=== PATIENT | female | born 1995 | race Caucasian/White ===

== ENCOUNTER 2017-02-08 22:13 | Emergency (ER) | payer MEDICAID ==
[2015-08-07 01:41] VITALS: BMI 26.0
[2017-02-08 22:51] LABS: BASOPHILS 0.2 % (0-2); EOSINOPHILS 1.9 % (0-7); HEMATOCRIT 37.4 % (36.0-48.0); HEMOGLOBIN 13.1 g/dL (12-16); IMMATURE GRANULOCYTES 0.1 % (0-5); LYMPHOCYTES 27.3 % (15-50); MCH 30.3 pg (26.0-34.0); MCV 86.6 fL (80.0-100.0); MEAN PLATELET VOLUME 9.5 fL (7.4-10.4); MONOCYTES 10.2 % (2-11); NEUTROPHILS 60.3 % (40-80); PLATELET COUNT 281 10x3/uL (130-400); RBC 4.32 10x6/uL (4.00-5.40); RDW 12.2 % (11.5-14.5)
[2017-02-08 23:01] LABS: HCG SERUM POSITIVE (NEGATIVE)
[2017-02-08 23:03] LABS: ALBUMIN 3.8 g/dL (3.4-5.0); ALKALINE PHOSPHATASE 84 U/L (46-116); ALT (SGPT) 28 U/L (10-68); CALC OSMOLALITY 269 mosm/kg (275-300); CALCIUM 9.2 mg/dL (8.5-10.1); CARBON DIOXIDE 22.6 mmol/L (21.0-32.0); CHLORIDE - SERUM 103 mmol/L (98-107); CREATININE - SERUM 0.6 mg/dL (0.6-1.3); GLUCOSE 92 mg/dL (74-106); POTASSIUM - SERUM 3.6 mmol/L (3.5-5.1); PROTEIN - SERUM 7.5 g/dL (6.4-8.2); SODIUM 136 mmol/L (136-145); UREA NITROGEN 8 mg/dL (7-18); eGFR NON AFRICAN AMERICAN > 90 mL/min (90-120)
[2017-02-08 23:20] LABS: APPEARANCE CLEAR (CLEAR); BILIRUBIN NEGATIVE (NEGATIVE); COLOR YELLOW (YELLOW); GLUCOSE NEGATIVE (NEGATIVE); KETONE NEGATIVE (NEGATIVE); NITRITE NEGATIVE (NEGATIVE); PROTEIN NEGATIVE (NEGATIVE); SPECIFIC GRAVITY 1.015 (1.005-1.020); UROBILINOGEN NORMAL (NORMAL)
== END 2017-02-09 00:02 | disposition home or self-care (01) ==
LOC: D.ER 22:13
PROVIDERS: Family Medicine
DX: O26.891 Other specified pregnancy related conditions, first trimester (principal); Z3A.08 8 weeks gestation of pregnancy; M54.5 Low back pain; F41.9 Anxiety disorder, unspecified

== ENCOUNTER 2017-04-26 23:20 | Emergency (ER) | payer MEDICAID ==
[2015-08-07 01:41] VITALS: BMI 26.0
[2017-04-26 23:39] LABS: APPEARANCE CLEAR (CLEAR); COLOR YELLOW (YELLOW); NITRITE NEGATIVE (NEGATIVE); PROTEIN NEGATIVE (NEGATIVE)
[2017-04-26 23:40] LABS: BILIRUBIN NEGATIVE (NEGATIVE); GLUCOSE NEGATIVE (NEGATIVE); KETONE NEGATIVE (NEGATIVE); UROBILINOGEN NORMAL (NORMAL)
[2017-04-27 00:19] LABS: BASOPHILS 0.1 % (0-2); EOSINOPHILS 0.9 % (0-7); HEMATOCRIT 35.7 % (36.0-48.0); HEMOGLOBIN 12.5 g/dL (12-16); IMMATURE GRANULOCYTES 0.5 % (0-5); LYMPHOCYTES 19.7 % (15-50); MCH 30.6 pg (26.0-34.0); MCV 87.5 fL (80.0-100.0); MEAN PLATELET VOLUME 9.8 fL (7.4-10.4); MONOCYTES 8.1 % (2-11); NEUTROPHILS 70.7 % (40-80); PLATELET COUNT 265 10x3/uL (130-400); RBC 4.08 10x6/uL (4.00-5.40); WBC 9.9 10x3/uL (4.8-10.8)
[2017-04-27 00:30] LABS: ALBUMIN 3.3 g/dL (3.4-5.0); ALKALINE PHOSPHATASE 79 U/L (46-116); ALT (SGPT) 20 U/L (10-68); CALC OSMOLALITY 273 mosm/kg (275-300); CARBON DIOXIDE 23.1 mmol/L (21.0-32.0); CHLORIDE - SERUM 104 mmol/L (98-107); CREATININE - SERUM 0.6 mg/dL (0.6-1.3); GLUCOSE 93 mg/dL (74-106); POTASSIUM - SERUM 3.9 mmol/L (3.5-5.1); PROTEIN - SERUM 7.5 g/dL (6.4-8.2); SODIUM 138 mmol/L (136-145); UREA NITROGEN 6 mg/dL (7-18); eGFR NON AFRICAN AMERICAN > 90 mL/min (90-120)
== END 2017-04-27 00:45 | disposition home or self-care (01) ==
LOC: D.ER 23:20
PROVIDERS: Emergency Medicine
DX: O26.892 Other specified pregnancy related conditions, second trimester (principal); Z3A.19 19 weeks gestation of pregnancy; R11.0 Nausea

== ENCOUNTER → 2017-07-23 14:02 | Outpatient (CLI) | payer MEDICAID ==
[2015-08-07 01:41] VITALS: BMI 26.0
[2017-07-23 16:01] LABS: APPEARANCE CLEAR (CLEAR); BILIRUBIN NEGATIVE (NEGATIVE); COLOR YELLOW (YELLOW); GLUCOSE NEGATIVE (NEGATIVE); KETONE NEGATIVE (NEGATIVE); NITRITE NEGATIVE (NEGATIVE); PROTEIN NEGATIVE (NEGATIVE); UROBILINOGEN NORMAL (NORMAL)
[2017-07-23 17:50] LABS: BASOPHILS 0.1 % (0-2); EOSINOPHILS 1.4 % (0-7); HEMATOCRIT 33.3 % (36.0-48.0); HEMOGLOBIN 11.3 g/dL (12-16); IMMATURE GRANULOCYTES 0.6 % (0-5); MCH 29.7 pg (26.0-34.0); MCHC 33.9 g/dL (31.0-37.0); MCV 87.6 fL (80.0-100.0); MONOCYTES 9.5 % (2-11); NEUTROPHILS 66.4 % (40-80); PLATELET COUNT 236 10x3/uL (130-400); RDW 12.3 % (11.5-14.5); WBC 8.8 10x3/uL (4.8-10.8)
[2017-07-23 18:07] LABS: ALBUMIN 2.5 g/dL (3.4-5.0); ALKALINE PHOSPHATASE 141 U/L (46-116); ALT (SGPT) 20 U/L (10-68); BILIRUBIN - TOTAL 0.35 mg/dL (0.2-1.3); CALC OSMOLALITY 272 mosm/kg (275-300); CALCIUM 8.9 mg/dL (8.5-10.1); CARBON DIOXIDE 23.4 mmol/L (21.0-32.0); CHLORIDE - SERUM 104 mmol/L (98-107); CREATININE - SERUM 0.5 mg/dL (0.6-1.3); GLUCOSE 86 mg/dL (74-106); POTASSIUM - SERUM 4.1 mmol/L (3.5-5.1); PROTEIN - SERUM 6.4 g/dL (6.4-8.2); SODIUM 138 mmol/L (136-145); UREA NITROGEN 7 mg/dL (7-18); eGFR NON AFRICAN AMERICAN > 90 mL/min (90-120)
== END | disposition home or self-care (01) ==
LOC: D.LDO 14:02
PROVIDERS: Obstetrics & Gynecology
DX: O26.899 Other specified pregnancy related conditions, unspecified trimester (principal); Z3A.00 Weeks of gestation of pregnancy not specified; R10.9 Unspecified abdominal pain

== ENCOUNTER → 2017-08-09 10:58 | Outpatient (CLI) | payer MEDICAID ==
[2015-08-07 01:41] VITALS: BMI 26.0
[~2017-08-09 10:58] MED LIST: PEPCID AC20 MG PO
[2017-08-09 11:52] LABS: APPEARANCE CLEAR (CLEAR); BILIRUBIN NEGATIVE (NEGATIVE); COLOR YELLOW (YELLOW); EPITHELIAL CELLS 0-5 /hpf (0-5); GLUCOSE NEGATIVE (NEGATIVE); KETONE NEGATIVE (NEGATIVE); NITRITE NEGATIVE (NEGATIVE); PROTEIN NEGATIVE (NEGATIVE); SPECIFIC GRAVITY 1.015 (1.005-1.020); WHITE CELLS - URINE 0-5 /hpf (0-5)
[2017-08-09 11:53] LABS: BACTERIA MODERATE /hpf (NONE SEEN); MUCUS <1+ /lpf (NONE SEEN)
[2017-08-09 11:54] LABS: CALCIUM OXALATE CRYSTALS OCC /hpf (NONE SEEN)
== END | disposition home or self-care (01) ==
LOC: D.LDO 10:58
PROVIDERS: Obstetrics & Gynecology
DX: O26.899 Other specified pregnancy related conditions, unspecified trimester (principal); Z3A.00 Weeks of gestation of pregnancy not specified

== ENCOUNTER 2017-08-14 09:49 | Outpatient (CLI) | payer MEDICAID ==
[2015-08-07 01:41] VITALS: BMI 26.0
== END 2017-08-14 11:00 ==
LOC: D.LDO 09:49
DX: O26.893 Other specified pregnancy related conditions, third trimester (principal); Z3A.34 34 weeks gestation of pregnancy; M54.5 Low back pain; R10.30 Lower abdominal pain, unspecified

== ENCOUNTER 2017-08-14 19:49 | Outpatient (CLI) | payer MEDICAID ==
[2015-08-07 01:41] VITALS: BMI 26.0
== END 2017-08-15 22:53 ==
LOC: D.LDO 19:49 → D.LD 20:00 → D.LDO 08-15 22:53
DX: O26.893 Other specified pregnancy related conditions, third trimester (principal); Z3A.34 34 weeks gestation of pregnancy

== ENCOUNTER 2017-09-12 13:34 | Inpatient (IN) | payer MEDICAID ==
[~2017-09-12] VITALS: Ht 157.5 cm; Wt 64.5 kg
--- NOTE | ~2017-09-12 | OP ---
PATIENT NAME: DAVID SOLER MEDICAL RECORD: [id number] :89 LOCATION:[facility] ADMISSION DATE:09/13/17 SURGEON: LISA PAIGE MD DATE OF OPERATION: 09/13/2017 PREDELIVERY DIAGNOSIS: at term. POSTDELIVERY DIAGNOSIS: at term. PROCEDURE: Induction of labor with vaginal delivery. ATTENDING PHYSICIAN: Lisa Paige MD ANESTHETIC: None. FINDINGS: Viable male , vertex presentation, Apgars 9 and 9, weight 6 pounds 13 ounces. Bilateral first-degree lacerations of the labia minora, now repaired with 4-0 chromic. Placenta spontaneous and intact. ESTIMATED BLOOD LOSS: 300 cc. DISPOSITION: Mother and recovered in the room. TRANSINT:[id number] Voice Confirmation ID: [id number] DOCUMENT ID: [id number] LISA PAIGE MD at 1615 CC: [id number] DICTATION DATE: 09/14/17 0459 PUMP SERVICER SUPERVISOR: 09/14/17 0942 ADM IN [facility] [address] [place] [address]
--- NOTE | ~2017-09-12 | DS ---
PATIENT:DAVID SOLER :89 MEDICAL RECORD: [id number] DISCHARGE SUMMARY ADMISSION DATE: 09/13/17 DISCHARGE DATE: 09/15/17 DATE OF ADMISSION: 09/13/2017 DATE OF DISCHARGE: 09/15/2017 ADMISSION DIAGNOSIS: at term. DISCHARGE DIAGNOSIS: Mother delivered at term. PROCEDURE: Induction of labor with vaginal delivery. ATTENDING: Lisa Anderson MD HISTORY OF PRESENT ILLNESS: See the H&P in the chart. SUMMARY OF HOSPITALIZATION: The patient was admitted on the night of the and received a dose of misoprostol. The patient went on into active labor and shortly thereafter delivered vaginally without complication. At the time of discharge, the patient is doing well without complaints. The patient is using ibuprofen for pain management. She desires Depo-Provera for control. The patient will receive injection before she departs. Standard precautions have been reviewed and she will follow up in 6 weeks at [facility]. TRANSINT:[id number] Voice Confirmation ID: [id number] DOCUMENT ID: [id number] LISA ANDERSON MD at 1251 CC: [id number] DICTATION DATE: 09/15/17 0635 FURRIER DESIGNER: 09/15/17 0853 DIS IN 09/15/17 [place] [id number] [place] [address]
[2017-09-13 21:34] LABS: HEMATOCRIT 33.3 % (36.0-48.0); HEMOGLOBIN 11.4 g/dL (12-16); MCH 28.6 pg (26.0-34.0); MCHC 34.2 g/dL (31.0-37.0); MCV 83.7 fL (80.0-100.0); MEAN PLATELET VOLUME 11.2 fL (7.4-10.4); RBC 3.98 10x6/uL (4.00-5.40); RDW 13.1 % (11.5-14.5); WBC 7.1 10x3/uL (4.8-10.8)
[2017-09-13 21:57] VITALS: BP 118/67; Ht 157.5 cm; Wt 64.5 kg
[2017-09-13 22:01] LABS: APPEARANCE CLEAR (CLEAR); BILIRUBIN NEGATIVE (NEGATIVE); COLOR YELLOW (YELLOW); GLUCOSE NEGATIVE (NEGATIVE); KETONE NEGATIVE (NEGATIVE); NITRITE NEGATIVE (NEGATIVE); PROTEIN NEGATIVE (NEGATIVE); SPECIFIC GRAVITY 1.015 (1.005-1.020); UROBILINOGEN NORMAL (NORMAL)
[2017-09-13 22:03] LABS: AMORPHOUS SEDIMENT <1+ /lpf (NONE SEEN); BACTERIA FEW /hpf (NONE SEEN); EPITHELIAL CELLS 0-5 /hpf (0-5); RED CELLS - URINE OCC /hpf (0-5); WHITE CELLS - URINE OCC /hpf (0-5)
[2017-09-13] MEDS ORDERED: PEPCID AC20 MG PO (22:10)
[2017-09-14 08:19] VITALS: BP 135/79
[2017-09-14 11:12] VITALS: BP 123/74
[2017-09-14 19:18] VITALS: BP 116/67
[2017-09-15 05:34] LABS: HEMATOCRIT 33.5 % (36.0-48.0); HEMOGLOBIN 11.1 g/dL (12-16); MCH 28.1 pg (26.0-34.0); MCHC 33.1 g/dL (31.0-37.0); MCV 84.8 fL (80.0-100.0); MEAN PLATELET VOLUME 11.2 fL (7.4-10.4); RBC 3.95 10x6/uL (4.00-5.40); RDW 13.4 % (11.5-14.5)
[2017-09-15 05:38] LABS: WBC 10.1 10x3/uL (4.8-10.8)
[2017-09-15 06:14] LABS: RAPID PLASMA REAGIN Non Reactive (Non Reactive)
[2017-09-15 07:12] VITALS: BP 132/62
== END 2017-09-15 12:35 | disposition home or self-care (01) | DRG 775 ==
LOC: D.LD 13:34 → D.SDCHOLD 09-15 04:55 → D.LD 09-15 12:35
PROVIDERS: Obstetrics & Gynecology
PROC: 10E0XZZ Delivery of Products of Conception, External Approach (ICD-10-PCS; principal; 2017-09-13)
PROC: 0HQ9XZZ Repair Perineum Skin, External Approach (ICD-10-PCS; 2017-09-13)
DX: O70.0 First degree perineal laceration during delivery (principal); Z3A.39 39 weeks gestation of pregnancy; Z37.0 Single live birth

== ENCOUNTER 2017-11-19 17:53 | Day surgery (SDC) | payer MEDICAID ==
[2017-11-16 11:27] LABS: BASOPHILS 0.3 % (0-2); EOSINOPHILS 2.4 % (0-7); HEMATOCRIT 41.8 % (36.0-48.0); HEMOGLOBIN 14.3 g/dL (12-16); IMMATURE GRANULOCYTES 0.3 % (0-5); LYMPHOCYTES 40.3 % (15-50); MCHC 34.2 g/dL (31.0-37.0); MCV 84.8 fL (80.0-100.0); MEAN PLATELET VOLUME 9.5 fL (7.4-10.4); MONOCYTES 10.3 % (2-11); NEUTROPHILS 46.4 % (40-80); RBC 4.93 10x6/uL (4.00-5.40); RDW 14.4 % (11.5-14.5); WBC 6.3 10x3/uL (4.8-10.8)
[2017-11-16 11:31] LABS: PLATELET COUNT 299 10x3/uL (130-400)
[~2017-11-19] VITALS: Ht 157.5 cm; Wt 59.0 kg
--- NOTE | ~2017-11-19 | OP ---
PATIENT NAME: DAVID SOLER MEDICAL RECORD: [id number] :89 LOCATION:[facility] ADMISSION DATE: SURGEON: LISA ANDERSON MD DATE OF OPERATION: 11/19/2017 PREOPERATIVE DIAGNOSES: 1. Unwanted fertility. 2. History of labial trauma. POSTOPERATIVE DIAGNOSES: 1. Unwanted fertility. 2. History of labial trauma. PROCEDURE: 1. Bilateral tubal occlusion using Falope rings. 2. Labial revision, left. SURGEON: Lisa Anderson MD ANESTHESIOLOGIST: Dr. Patterson. ANESTHESIA: General. FINDINGS: Left labia minora with disruption approximately a centimeter and a half from the clitoral patrick. This is well healed and no evidence of erythema or induration. At the time of laparoscopy, unremarkable anatomy was noted with unremarkable appearing uterus, tubes, and ovaries bilaterally. SPECIMENS REMOVED: None. SPECIMEN DISPOSITION: None applicable. ESTIMATED BLOOD LOSS: Minimal. FLUIDS: 800 cc of lactated Ringer. URINE OUTPUT: Quantity sufficient void prior to this procedure. COMPLICATIONS: None. DRAINS: None. INDICATIONS: The patient is a 22-year-old multiparous female with unwanted fertility. The patient also with labial trauma during vaginal delivery. This area is well healed. The patient has negative self-image and desires repair of labial scarring. DESCRIPTION OF PROCEDURE: After informed consent was assured, the patient was taken to the operating room where anesthetic was obtained. The patient was placed in Mayito stirrups and prepped and draped in the usual sterile fashion. An incision was made at the umbilicus to accommodate a 5-mm trocar. Pneumoperitoneum was developed and then an 8 mm trocar is placed 2 fingerbreadths above the symphysis in the midline. The uterus was noted to be retroverted. Using a blunt probe, the tubes are lifted and followed to the fimbriated end. The tubes were laid over the large and small bowel. With the OPERATIVE REPORT [id number] DAVID SOLER left tube exposed, a Falope ring was applied just beyond the isthmic portion and prior to the ampullary portion of the left tube. The tube applications repeated on the right side. The right Falope ring was applied at the isthmic portion of the tube. Marcaine was placed directly over both tubal occlusion sites. The trocars were removed after release of the pneumoperitoneum and the subcuticular stitch applied. Attention was now directed to the vulva. The inferior and superior aspect of the labial disruption is identified. Using Adson retract pickups and placing the labia and gentle retraction. Tenotomy scissors were used to make a V incision along the superior and inferior aspect of this disruption. The skin is now closed with 5-0 Monocryl stitch starting on the lateral aspect and using interrupteds. The stitch is reapproximated both superior and inferior aspects. Sterile dressing was applied. Sponge, lap, and needle counts correct times 2. The patient was awakened and went to the recovery room in stable condition. TRANSINT:[id number] Voice Confirmation ID: [id number] DOCUMENT ID: [id number] LISA ANDERSON MD at 1610 CC: [id number] DICTATION DATE: 11/19/17 1118 ANTENNA INSTALLER: 11/19/17 1425 [facility] [place] 11/19/17 [facility] [address] [place] [address]
[2017-11-19 07:57] VITALS: Ht 157.5 cm; Wt 59.0 kg
[2017-11-19 09:19] LABS: HCG URINE NEGATIVE (NEGATIVE)
== END 2017-11-19 17:54 | disposition home or self-care (01) ==
LOC: D.OPS 17:53
PROVIDERS: Obstetrics & Gynecology
DX: Z30.2 Encounter for sterilization (principal); Z87.828 Personal history of other (healed) physical injury and trauma; S39.9 Unspecified injury of abdomen, lower back, pelvis and external genitals; Z01.812 Encounter for preprocedural laboratory examination

== ENCOUNTER 2019-03-05 20:52 | Emergency (ER) | payer MEDICAID ==
[~2019-03-05] VITALS: Ht 157.5 cm; Wt 59.1 kg
[2019-03-05 21:22] VITALS: BP 120/68; Ht 157.5 cm; Wt 59.1 kg
[2019-03-05 21:57] LABS: BASOPHILS 0.1 % (0-2); EOSINOPHILS 0.9 % (0-7); HEMATOCRIT 39.1 % (36.0-48.0); HEMOGLOBIN 13.2 g/dL (12-16); IMMATURE GRANULOCYTES 0.1 % (0-5); LYMPHOCYTES 38.5 % (15-50); MCH 29.5 pg (26.0-34.0); MCHC 33.8 g/dL (31.0-37.0); MCV 87.5 fL (80.0-100.0); MEAN PLATELET VOLUME 9.3 fL (7.4-10.4); MONOCYTES 7.4 % (2-11); PLATELET COUNT 289 10x3/uL (130-400); RBC 4.47 10x6/uL (4.00-5.40); RDW 12.4 % (11.5-14.5); WBC 8.5 10x3/uL (4.8-10.8)
[2019-03-05 22:07] LABS: CALC OSMOLALITY 279 mosm/kg (275-300); CARBON DIOXIDE 27.3 mmol/L (21.0-32.0); CHLORIDE - SERUM 105 mmol/L (98-107); CREATININE - SERUM 0.8 mg/dL (0.6-1.3); GLUCOSE 94 mg/dL (74-106); POTASSIUM - SERUM 3.7 mmol/L (3.5-5.1); SODIUM 141 mmol/L (136-145); UREA NITROGEN 10 mg/dL (7-18); eGFR NON AFRICAN AMERICAN > 90 mL/min (90-120)
[2019-03-05 22:17] LABS: ALBUMIN 4.2 g/dL (3.4-5.0); ALKALINE PHOSPHATASE 70 U/L (30-120); ALT (SGPT) 45 U/L (10-68); BILIRUBIN - TOTAL 0.53 mg/dL (0.2-1.3); MAGNESIUM - SERUM 2.1 mg/dL (1.8-2.4); PROTEIN - SERUM 8.3 g/dL (6.4-8.2)
[2019-03-05 22:52] LABS: APPEARANCE CLEAR (CLEAR); BILIRUBIN NEGATIVE (NEGATIVE); COLOR YELLOW (YELLOW); GLUCOSE NEGATIVE (NEGATIVE); KETONE NEGATIVE (NEGATIVE); NITRITE NEGATIVE (NEGATIVE); PROTEIN NEGATIVE (NEGATIVE); SPECIFIC GRAVITY 1.015 (1.005-1.020); UROBILINOGEN NORMAL (NORMAL)
[2019-03-05 22:53] LABS: BACTERIA MODERATE /hpf (NEGATIVE); WHITE CELLS - URINE 0-5 /hpf (NEGATIVE)
[2019-03-05 22:54] LABS: HCG URINE NEGATIVE (NEGATIVE)
[2019-03-05 22:57] LABS: UDS - AMPHET NEGATIVE QUAL (NEGATIVE); UDS - BARB NEGATIVE QUAL (NEGATIVE); UDS - BENZO NEGATIVE QUAL (NEGATIVE); UDS - COCAINE NEGATIVE QUAL (NEGATIVE); UDS - OPIATE NEGATIVE QUAL (NEGATIVE); UDS - PCP NEGATIVE QUAL (NEGATIVE); UDS - THC POSITIVE QUAL (NEGATIVE)
== END 2019-03-05 22:58 | disposition home or self-care (01) ==
LOC: D.ER 20:52
PROVIDERS: Family Medicine
DX: F41.9 Anxiety disorder, unspecified (principal); Z63.5 Disruption of family by separation and divorce

== ENCOUNTER 2019-08-13 12:09 | Emergency (ER) | payer MEDICAID ==
[~2019-08-13] VITALS: Ht 157.5 cm; Wt 56.8 kg
[2019-08-13 12:22] VITALS: BP 123/66; Ht 157.5 cm; Wt 56.8 kg
[2019-08-13] MEDS ORDERED: AMOXICILLIN500 M1 PO (12:36)
[2019-08-13] MEDS ORDERED: STERAPRED DS 1010 MG PO (12:36)
== END 2019-08-13 13:03 | disposition home or self-care (01) ==
LOC: D.ER 12:09
DX: H66.92 Otitis media, unspecified, left ear (principal); J02.9 Acute pharyngitis, unspecified; J06.9 Acute upper respiratory infection, unspecified; J45.909 Unspecified asthma, uncomplicated

== ENCOUNTER 2019-09-29 12:22 | Emergency (ER) | payer MEDICAID ==
[~2019-09-29] VITALS: Ht 157.5 cm; Wt 59.1 kg
[~2019-09-29 12:22] MED LIST changes: +AMOXICILLIN500 M1 PO; +STERAPRED DS 1010 MG PO
[2019-09-29 12:42] VITALS: Ht 157.5 cm; Wt 59.1 kg
[2019-09-29] MEDS ORDERED: FLUTICASONE PRO16 GM NASAL (15:11)
[2019-09-29] MEDS ORDERED: ZYRTEC10 MG PO (15:11)
[2019-09-29 15:21] VITALS: BP 118/63
== END 2019-09-29 16:12 | disposition home or self-care (01) ==
LOC: D.ER 12:22
DX: J30.9 Allergic rhinitis, unspecified (principal); J02.9 Acute pharyngitis, unspecified